=== PATIENT | female | born 1960 ===

== ENCOUNTER 2018-01-07 23:07 | Emergency (ER) | payer OTHER ==
[2018-01-07] MEDS ORDERED: Sodium Chloride 0.9% 1,000 ML IV ONE (23:40)
[2018-01-07] MEDS ORDERED: Iohexol 240 (50 ml) PO STA (23:40)
--- NOTE | 2018-01-07 23:54 | C.PDOC ---
History Of Present Illness 57 year old female presents to the ER with a complaint of RLQ pain for the past 2 hours after eating a greasy pork dinner. Patient states the pain is constant and states it hurts to walk and move. Patient reports having similar pain 2 months ago but not as severe. Denies nausea, vomiting, diarrhea, fever, or chills. Patient is s/p hysterectomy. Time Seen by Provider: 01/07/18 23:34 Chief Complaint (Nursing): Abdominal Pain History Per: Patient History/Exam Limitations: no limitations Onset/Duration Of Symptoms: Days Current Symptoms Are (Timing): Still Present Severity: Moderate Pain Scale Rating Of: 4 Location Of Pain/Discomfort: RLQ Radiation Of Pain To:: None Quality Of Discomfort: Unable To Describe Associated Symptoms: denies: Fever, Chills, Nausea, Vomiting, Diarrhea Exacerbating Factors: Movement, Walking Alleviating Factors: None Recent travel outside of the [place]: No Abnormal Vaginal Bleeding: No Past Medical History Reviewed: Historical Data, Nursing Documentation, Vital Signs Vital Signs: Last Vital Signs Temp 97.9 F 01/07/18 23:25 Pulse 86 01/07/18 23:25 Resp 20 01/07/18 23:25 BP 171/93 H 01/07/18 23:25 Pulse Ox 98 01/07/18 23:59 - Medical History PMH: HTN, Hypercholesterolemia Family History: States: Unknown Family Hx - Social History Hx Alcohol Use: No Hx Substance Use: No - Immunization History Hx Tetanus Toxoid Vaccination: No Hx Influenza Vaccination: Yes Hx Pneumococcal Vaccination: No Review Of Systems Constitutional: Negative for: Fever, Chills Cardiovascular: Negative for: Chest Pain, Palpitations Respiratory: Negative for: Cough, Shortness of Breath Gastrointestinal: Positive for: Abdominal Pain. Negative for: Nausea, Vomiting , Diarrhea Genitourinary: Negative for: Dysuria, Hematuria Physical Exam - Physical Exam Appears: Non-toxic Skin: Normal Color, Warm, Dry Head: Atraumatic, Normacephalic Eye(s): bilateral: Normal Inspection Oral Mucosa: Moist Chest: Symmetrical, No Tenderness Cardiovascular: Rhythm Regular Respiratory: Normal Breath Sounds, No Rales, No Rhonchi, No Wheezing Gastrointestinal/Abdominal: Soft, Tenderness (RLQ), Guarding, No Rebound Neurological/Psych: Oriented x3, Normal Speech ED Course And Treatment - Laboratory Results Result Diagrams: 01/08/18 00:25 01/08/18 00:25 Lab Interpretation: No Acute Changes O2 Sat by Pulse Oximetry: 98 (Room air) Pulse Ox Interpretation: Normal Progress Note: Blood work, urinalysis, CT abd/pel ordered. Morphine and IV fluids administered. Disposition - Disposition Disposition Time: 00:50 Condition: STABLE Forms: [facility] ([place]inese) - Clinical Impression Clinical Impression: RLQ abdominal pain - Scribe Statement The provider has reviewed the documentation as recorded by the Scribe Serafin Zafar All medical record entries made by the Scribe were at my direction and personally dictated by me. I have reviewed the chart and agree that the record accurately reflects my personal performance of the history, physical exam, medical decision making, and the department course for this patient. I have also personally directed, reviewed, and agree with the discharge instructions and disposition. Physician Patient Turnover Patient Signed Over To: Claudia Mendoza Handoff Comments: pending CT scan abdomen and pelvis r/o appendicitis, cholecystitis.
[2018-01-08 00:02] LABS: SQUAMOUS EPITHIAL < 1 /hpf (0-5); URINE BACTERIA RARE (<OCC); URINE BILIRUBIN NEGATIVE (NEGATIVE); URINE BLOOD NEGATIVE (NEGATIVE); URINE CLARITY Clear (Clear); URINE COLOR Colorless (YELLOW); URINE GLUCOSE (UA) NORMAL (Normal); URINE LEUKOCYTE ESTERASE NEG Leu/uL (Negative); URINE PROTEIN NEGATIVE (NEGATIVE); URINE UROBILINOGEN NORMAL mg/dL (0.2-1.0)
[2018-01-08] MEDS ORDERED: Iohexol 240 (50 ml) ONE (00:20)
[2018-01-08] MEDS ORDERED: Sodium Chloride 0.9% 1,000 ML ONE (00:20)
[2018-01-08] MEDS ORDERED: Morphine 4 MG/ML VIAL ONE (00:20)
[2018-01-08 00:29] LABS: BASO # 0.1 K/uL (0.0-0.2); BASO % 1.4 % (0.0-2.0); EOS # 0.2 K/uL (0.0-0.7); EOS % 2.2 % (0.0-4.0); HEMOGLOBIN 14.4 g/dL (11.0-16.0); LYMPH % 36.1 % (20.0-40.0); MEAN CELL VOLUME 91.5 fL (81.0-99.0); MEAN CORPUSCULAR HEMOGLOBIN 31.6 pg (27.0-31.0); MEAN CORPUSCULAR HGB CONC 34.6 g/dL (33.0-37.0); MEAN PLATELET VOLUME 7.9 fL (7.2-11.7); MONO # 0.6 K/uL (0.0-0.8); MONO % 7.3 % (0.0-10.0); NEUT # 4.4 K/uL (1.8-7.0); NRBC % 0.1 % (0.0-2.0); RBC 4.56 Mil/uL (3.80-5.20); RED CELL DISTRIBUTION WIDTH 13.2 % (11.5-14.5); WHITE BLOOD COUNT 8.2 K/uL (4.8-10.8)
[2018-01-08 00:35] LABS: ALB/GLOB RATIO 1.2 (1.0-2.1); ALBUMIN 4.4 g/dL (3.5-5.0); ALT/SGPT 33 U/L (9-52); AST/SGOT 30 U/L (14-36); BLOOD UREA NITROGEN 17 mg/dL (7-17); CALCIUM 8.9 mg/dl (8.6-10.4); GFR AFRICAN-AMERICAN > 60; GFR NON-AFRICAN AMERICAN > 60; LIPASE 193 U/L (23-300)
[2018-01-08 01:30] VITALS: TEMP 97.6
[2018-01-08 04:12] VITALS: BP 143/83; PULSE 98; RESP 18; O2SAT 96
--- NOTE | 2018-01-08 14:07 | CT ---
PROCEDURE: CT abdomen pelvis dated 01/08/2018 HISTORY: Abdominal pain COMPARISON: Comparison made with prior study dated 09/18/2011 TECHNIQUE: Contiguous helical/ transaxial sections of the abdomen pelvis performed following oral and intravenous injection of 100 cc Visipaque 20 contrast material. Additional 2D sagittal and coronal reformats generated. This CT exam was performed using one or more of the following dose reduction techniques: Automated exposure control, adjustment of the mA and/or kV according to patient size, and/or use of iterative reconstruction technique. Radiation dose: Total exam DLP = 880.25 mGy-cm. This CT exam was performed using one or more of the following dose reduction techniques: Automated exposure control, adjustment of the mA and/or kV according to patient size, and/or use of iterative reconstruction technique. . FINDINGS: LOWER THORAX: Lung bases bases demonstrate mild passive/dependent type atelectasis with some linear scarring in the left medial lung base and probably in the middle well. No evidence of effusion or basilar pneumothorax. Heart size within range of normal. No significant pericardial effusion. Small hiatal hernia with wall thickening of the distal esophagus likely due to treatment mucosa. Possibility of esophagitis not excluded LIVER: Liver exhibits normal size measuring approximately 18 cm in CC dimension. No obvious hepatic mass or collection. Mild fatty hepatic infiltration. Portal splenic veins are opacified. GALLBLADDER AND BILE DUCTS: Unremarkable. PANCREAS: Unremarkable. No mass. No ductal dilatation. SPLEEN: Spleen exhibits normal size attenuation pattern. Small splenule seen located anterior and superior to the main body of the spleen. ADRENALS: There is an approximately 13.6 mm left adrenal mass that appears hyperdense likely contrast-enhancing. . Followup MRI scan without contrast employing adrenal protocol to assess adrenal carcinoma recommended. . . Right adrenal gland unremarkable. Kidneys and ureters Kidneys demonstrate symmetric nephrograms. No evidence of nephrolithiasis. There are more prominent bilateral extrarenal pelves with mild columnization of both ureters. No evidence of ureteral calcification. BLADDER: Urinary bladder physiologically distended. No evidence of intraluminal urinary bladder calculi. REPRODUCTIVE: Hysterectomy APPENDIX: Normal-appearing appendix best seen on axial image number [id number]. No periappendiceal inflammatory changes. BOWEL: Evaluation of the bowel is somewhat limited due to incomplete opacification. Stomach is mildly distended with food debris liquid air and contrast material. Visualized loops of small bowel exhibit normal contour and caliber. No evidence acute mechanical small bowel obstruction. Questionable pelves artifact within the distal loop of small bowel right aspect of the upper pelvis. Stool and air seen throughout the large bowel. No definitive abnormal mural wall thickening. PERITONEUM: Unremarkable. No fluid collection. No free air. Small fat containing umbilical hernia. LYMPH NODES: Unremarkable. No enlarged lymph nodes. VASCULATURE: Unremarkable. No aortic aneurysm. BONES: Minor degenerative spondylosis of the lower thoracic and lumbar spine. OTHER FINDINGS: None. IMPRESSION: Mild fatty hepatic infiltration. There is an approximately 14 mm lobular left adrenal mass density in the which is somewhat hyperdense likely enhancing. . Followup MRI scan without contrast employing adrenal protocol to assess adrenal carcinoma recommended. . Note this report was placed PA review folder followup.
== END 2018-01-08 04:07 | disposition home or self-care (01) ==
LOC: C.ER 23:07
DX: R10.31 Right lower quadrant pain (principal)
CPT/HCPCS: 74177; 80053; 81001; 83690; 85025; 96361; 96374; 99284; J2270; J7030; Q9966

== ENCOUNTER 2018-08-26 09:35 | Outpatient (CLI) | payer OTHER | END 2018-08-26 09:36 | disposition home or self-care (01) | LOC: C.USIC 09:35 | DX: R42 Dizziness and giddiness (principal) ==

== ENCOUNTER 2018-09-24 12:29 | Outpatient (CLI) | payer OTHER | END 2018-09-24 12:30 | disposition home or self-care (01) | LOC: C.RADIC 12:29 | DX: M25.519 Pain in unspecified shoulder (principal) ==